=== PATIENT | male | born 1995 | race Caucasian/White ===

== ENCOUNTER 2018-01-01 17:27 | Emergency (ER) | payer OTHER ==
[2018-01-01 17:36] VITALS: BP 136/64
--- NOTE | 2018-01-01 17:42 | ED Physician Documentation ---
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 Now with today some redness, tenderness, and yellow exudate on side of scrotum. No penile discharge nor pain. ) Similar symptoms before: Has not had sx before Recently seen: Clinic Review of Systems Constitutional: denies: Fever, Chills : denies: Dysuria, Frequency Skin: reports: Rash PD PAST MEDICAL HISTORY - Past Medical History Cardiovascular: None Respiratory: None Neuro: None - Present Medications Home Medications: Ambulatory Orders Medication Instructions Recorded Confirmed Lidocaine 1 applic TP Q1H PRN #15 cream..g. 01/01/18 Mupirocin 1 applic TP TID #15 oint...g. 01/01/18 Sulfamethox/Trimeth 800/160 1 each PO BID #14 tablet 01/01/18 [Bactrim Ds 800/160] Tramadol HCl 50 mg PO Q6H PRN #15 tablet 01/01/18 - Allergies Allergies/Adverse Reactions: Allergies Allergy/AdvReac Type Severity Reaction Status Date / Time No Known Drug Allergies Allergy Verified 01/01/18 17:36 PD ED PE NORMAL - Vitals Vital signs reviewed: Yes - General General: Alert and oriented X 3, No acute distress, Well developed/nourished - Male Male : Other (penis and shaft appear normal. The pubis area with several small rounded scabbed spots c/w recently treated HPV warts. The side of the scrotum right side with few similar scabs and then some uniform redness with yellow exudate and tenderness on side of the scrotum. no swelling of scrotum generally.) - Derm Derm: Normal color, Warm and dry - Neuro Neuro: Alert and oriented X 3, Normal speech Results - Vitals Vitals: Vital Signs - 24 hr 01/01/18 17:34 Temperature 36.4 C L Heart Rate 67 Respiratory 16 Rate Blood Pressure 136/64 H O2 Saturation 100 Oxygen O2 Source Room air - Labs Labs: Microbiology 01/01/18 17:55 Wound Culture - Preliminary Scrotum PD MEDICAL DECISION MAKING - ED course Complexity details: considered differential (appears to be superficial infection of recently treated HPV spots. Presume staph. ), d/w patient Departure - Departure Disposition: 01 Home, Self Care Clinical Impression: Wound infection Condition: Stable Record reviewed to determine appropriate education?: Yes Instructions: ED Staph Infec Abx Tx Only Follow-Up: [facility] [Provider Group] Prescriptions: Lidocaine 1 applic TP Q1H PRN #15 cream..g. PRN Reason: Pain Mupirocin 1 applic TP TID #15 oint...g. Sulfamethox/Trimeth 800/160 [Bactrim Ds 800/160] 1 each PO BID #14 tablet Tramadol HCl 50 mg PO Q6H PRN #15 tablet PRN Reason: Pain Comments: Cleanse the area gently with soap and water and dry it to 3 times a day. Apply mupirocin antibiotic ointment. Take Bactrim oral antibiotic as well for the infection. This should heal over the next few days. For the pain you can use topical lidocaine. Orally you can use Tylenol or ibuprofen and add tramadol if needed for worse pain. Recheck if not improved over the next several days. The culture I did will result in 2 or 3 days and will tell us if we need to amend the antibiotics. Discharge Date/Time: 01/01/18 18:27
[2018-01-01] MEDS ORDERED: MUPIROCIN 2% OINT 1 GM TOP STA (17:56)
[2018-01-01] MEDS ORDERED: traMADol 50 MG TABLET PO STA (17:56)
[2018-01-01] MEDS ORDERED: IBUPROFEN 600 MG TABLET PO STA (17:56)
[2018-01-01] MEDS ORDERED: SULFAMETH/TRIMETH DS 800/160 MG TABLET PO STA (17:56)
== END 2018-01-01 18:27 | disposition home or self-care (01) ==
LOC: ED 17:27
DX: N49.2 Inflammatory disorders of scrotum (principal)
CPT/HCPCS: 87070; 87181; 87205; 99281; 99283; A9270